=== PATIENT | female | born 1965 | race Caucasian/White ===

== ENCOUNTER → 2019-10-20 10:45 | Outpatient (CLI) | payer BC, SELFPAY ==
--- NOTE | ~2019-10-20 | MM_ITS ---
EXAMINATION: MM screening [facility] BI w jesu HISTORY: Screening mammogram TECHNIQUE: Craniocaudal and mediolateral oblique 3-D tomosynthesis images were obtained and synthetic 2-D images were generated. CAD analysis was submitted and interpreted. COMPARISON: 09/18/2018, 09/16/2017, 07/24/2016 bilateral digital screening mammogram of April BREAST PARENCHYMAL COMPOSITION: There are scattered areas of fibroglandular density. FINDINGS: There is no evidence of suspicious mass, calcification, or architectural distortion to sugg est malignancy in either breast. There has been no suspicious interval change. IMPRESSION: 1. No mammographic evidence of malignancy. 2. Recommend routine screening mammography in one year. BI-RADS Category 1: Negative Reviewed, dictated and finalized at location A.
== END ==
PROVIDERS: PCP Family Medicine; Visit Provider Family Medicine
DX: Z12.31 Encounter for screening mammogram for malignant neoplasm of breast (principal)
CPT/HCPCS: 77063; 77067

== ENCOUNTER → 2020-09-22 13:51 | Outpatient (CLI) | payer BC, SELFPAY ==
--- NOTE | ~2020-09-22 | MR_ITS ---
EXAMINATION: MR knee LT wo con DATE: 09/22/2020 14:47 INDICATION: Left knee pain and instability post injury 5 months prior. TECHNIQUE: Magnetic resonance imaging (MRI) of the left knee was performed without intravenous contra st. Sequences included coronal PD-weighted FSE, coronal PD-weighted FS FSE, sagittal T2-weighted FSE , sagittal PD-weighted FS FSE and axial PD weighted fat saturated FSE. COMPARISON: None. FINDINGS: Medial compartment: Medial meniscus is normal. Articular cartilage is normal. Lateral compartment: Lateral meniscus is normal. Articular cartilage is normal. Patellofemoral compartment: Partial-thickness chondral fissure which appears to involve less than 50% the cartilage thickness at the inferior aspect of the lateral patellar facet. Trochlear cartilage is normal. Ligaments and tendons: The anterior and posterior cruciate ligaments are normal. There is thickening of the proximal medial collateral ligament without surrounding edema to suggest acute injury consistent with scarring relate d to chronic sprain. The fibular collateral ligament complex is normal. The extensor mechanism is nor mal. The visualized medial and lateral hamstring tendons as well as the iliotibial band are normal. Fluid: Minimal joint effusion at the suprapatellar pouch. No loose osteochondral bodies identified. Small Ba ker's cyst. Osseous/other: Normal marrow signal. No fracture or abnormal marrow replacing process. IMPRESSION: 1. Mild scarring along the proximal medial collateral ligament consistent with sequela chronic sprain . 2. Partial-thickness chondral fissuring at the inferior aspect of the lateral patellar facet. Reviewed, dictated and finalized at location A. IMPRESSION: 1. Mild scarring along the proximal medial collateral ligament consistent with sequela chronic sprain. 2. Partial-thickness chondral fissuring at the inferior aspect of the lateral p atellar facet.
== END ==
PROVIDERS: PCP Family Medicine; Visit Provider Family Medicine
DX: M23.90 Unspecified internal derangement of unspecified knee (principal); R93.6 Abnormal findings on diagnostic imaging of limbs
CPT/HCPCS: 73721

== ENCOUNTER → 2020-11-17 16:50 | Outpatient (CLI) | payer BC, SELFPAY ==
--- NOTE | ~2020-11-17 | MM_ITS ---
EXAMINATION: MM screening [facility] [place] BI w jesu HISTORY: Screening mammogram TECHNIQUE: Craniocaudal and mediolateral oblique 3-D tomosynthesis images were obtained and synthetic 2-D images were generated. CAD analysis was submitted and interpreted. COMPARISON: 10/20/2019, 09/18/2018 BREAST PARENCHYMAL COMPOSITION: There are scattered areas of fibroglandular density. FINDINGS: There is no evidence of suspicious mass, calcification, or architectural distortion to sugg est malignancy in either breast. There has been no suspicious interval change. IMPRESSION: 1. No mammographic evidence of malignancy. 2. Recommend routine screening mammography in one year. BI-RADS Category 1: Negative Reviewed, dictated and finalized at location A.
== END ==
PROVIDERS: PCP Family Medicine; Visit Provider Family Medicine
DX: Z12.31 Encounter for screening mammogram for malignant neoplasm of breast (principal)
CPT/HCPCS: 77063; 77067

== ENCOUNTER 2021-05-17 01:01 | Day surgery (SDC) | payer BC, SELFPAY ==
[2021-04-24 09:08] VITALS: BMI 20.7
--- NOTE | 2021-05-16 17:39 | PM.HPGS ---
History of Present Illness History of Present Illness Consent: Risks, benefits, and alternatives have been discussed and questions answered. Patient agrees to proceed with procedure. Chief complaint: occult GI bleed Narrative: Emily Abarca is a 55 year old female Who was referred for colon cancer screening Because a stool Hemoccult was positive for blood. Review of Systems Review of Systems: All systems reviewed & are unremarkable except as noted in HPI and below PMFSH Past Medical History Medical History Hyperglycemia Family History Family History Grandparent Family history of coronary artery disease Other No family history of cardiovascular disease Social History Social History Smoking status: Never smoker Alcohol intake: current Alcohol use details: 2X monthly Substance use: never Living arrangements: alone Spiritual care concerns: No Meds Home Medications and Allergies Home Medications Medication Instructions Recorded Confirmed Type multivitamin 1 tablet PO DAILY 09/08/19 04/24/21 History antiarthritic combination no.2 900 5,800 mg PO DAILY 11/30/20 04/24/21 History mg tablet omega-3 fatty acids 500 mg capsule 500 mg PO BID 11/30/20 04/24/21 History metformin 500 mg tablet,extended 500 mg PO .COMPLEX #270 tablet 03/06/21 04/24/21 Rx release 24 hr ascorbic [id number] 1 ea PO DAILY PRN 04/24/21 04/24/21 History [Emergen-C] Allergies Allergy/AdvReac Type Severity Reaction Status Date / Time No Known Allergies Allergy Verified 05/17/21 06:54 Exam Const: General: alert Orientation/consciousness: patient oriented x3 Resp: Auscultation: clear to auscultation bilaterally Cardio: Rhythm: regular rhythm GI: GI Palp: Yes Soft to palpation and No Tenderness to palpation present (GI) Neuro: General: patient oriented x3 Assessment and Plan Assessment and plan (1) Hematest positive stools: Code(s): R19.5 - Other fecal abnormalities Status: Acute Assessment and Plan: Colonoscopy with possible biopsy or polypectomy or cautery or injection of substances.
[2021-05-17 06:56] VITALS: BP 111/62; PULSE 75; RESP 16; TEMP 36.6; O2SAT 100
[2021-05-17 07:05] LABS: Glucose Point of Care 91 mg/dl (65-105)
[2021-05-17] MEDS: LACTATED RINGERS 1,000 ML 150 ML IV CONT (07:13)
--- NOTE | 2021-05-17 07:50 | P.PNAN_ITS ---
Anes - Initial Pre Proc Eval Procedure: Operation Date: 05/17/21 08:00 Proposed Procedures p Colonoscopy - Arnulfo Khan MD Date/Time: 05/17/21 07:50 Surgeon: Arnulfo Khan MD Pre Op Diagnosis: occult GI bleed Patient Data Age: 55 Gender: F Height: 1.6 m Weight: 53.5 kg Last Vital Signs Temp 97.8 F 05/17/21 06:56 Pulse 75 05/17/21 06:56 Resp 16 05/17/21 06:56 BP 111/62 05/17/21 06:56 Pulse Ox 100 05/17/21 06:56 Allergies Allergy/AdvReac Type Severity Reaction Status Date / Time No Known Allergies Allergy Verified 05/17/21 06:54 Home Medications Medication Instructions Recorded Confirmed Type multivitamin 1 tablet PO DAILY 09/08/19 04/24/21 History antiarthritic combination no.2 900 5,800 mg PO DAILY 11/30/20 04/24/21 History mg tablet omega-3 fatty acids 500 mg capsule 500 mg PO BID 11/30/20 04/24/21 History metformin 500 mg tablet,extended 500 mg PO .COMPLEX #270 tablet 03/06/21 04/24/21 Rx release 24 hr ascorbic [id number] 1 ea PO DAILY PRN 04/24/21 04/24/21 History [Emergen-C] Laboratory Tests 05/17/21 07:01 POC Capillary Glucose 91 mg/dl mg/dl (65-105) Patient hx anesthesia problems: none Family hx anesthesia problems: none Results Review: All pre-operative results and documents have been reviewed as part of the pre-operative evaluation. COUNTS INCLUDE 234 BEDS AT THE [facility] Past Medical History Medical History Hyperglycemia Family History Family History Grandparent Family history of coronary artery disease Other No family history of cardiovascular disease Social History Social History Smoking status: Never smoker Alcohol intake: current Alcohol use details: 2X monthly Substance use: never Living arrangements: alone Spiritual care concerns: No Anes - Eval Final PreProcedure Day of Procedure 05/17/21 07:50 Patient weight: normal Heart: regular rate and rhythm Lungs: clear to auscultation Airway: Mallampati scale class II Neurological: alert and oriented Last oral intake: >/= 8 hours ASA classification: II Emergent: no Anesthetic plan: proceed Anesthesia type and monitoring: general GIVS and standard monitoring Results Review: All pre-operative results and documents have been reviewed as part of the pre-operative evaluation. Informed Consent: The patient's anesthetic plan and its attendant risks and benefits were discussed with the patient/family/POA. Questions were solicited and answers provided to the satisfaction of the patient/family/POA.
[2021-05-17 08:26] VITALS: BP 102/59; PULSE 73; RESP 17; O2SAT 97
[2021-05-17 08:36] VITALS: BP 97/61; PULSE 65; RESP 17; O2SAT 97
[2021-05-17 08:46] VITALS: BP 123/73; PULSE 67; RESP 17; O2SAT 100
== END 2021-05-17 09:05 | disposition home or self-care (01) ==
PROVIDERS: PCP Family Medicine; Visit Provider Internal Medicine Gastroenterology
PROC: 0DJD8ZZ Inspection of Lower Intestinal Tract, Via Natural or Artificial Opening Endoscopic (ICD-10-PCS; CPT 45378; principal; 2021-05-17 08:00)
DX: R19.5 Other fecal abnormalities (principal); R73.9 Hyperglycemia, unspecified
CPT/HCPCS: 45378; 82948; J2704; J7120

== ENCOUNTER 2021-06-08 02:59 | Day surgery (SDC) | payer BC, SELFPAY ==
[2021-05-26 15:06] VITALS: BMI 21.0
--- NOTE | 2021-06-07 13:42 | WPDGICN ---
Assessment and Plan Assessment and plan (1) Dysphagia: Code(s): R13.10 - Dysphagia, unspecified Status: Acute Assessment and Plan: EGD with possible biopsy or dilatation or cautery. (2) Gastroesophageal reflux: Code(s): K21.9 - Gastro-esophageal reflux disease without esophagitis Status: Acute Assessment and Plan: we need to consider acid reducing medications GI Consult Note Consult date/time: 06/07/21 13:42 HPI: Emily Abarca is a 55 year old female Referred for investigation of difficulty swallowing. For the past year so she periodically will feel food gets stuck. This happens with breads as well as meat and sometimes K[employer] fries. Eventually it will pass but she may need to take a drink of water to help it pass. Often it is painful when the food that is stuck finally moves. She does not have chronic heartburn does not take anything for reflux. She recalls having an EGD about 10 years ago in [facility] and she was told it was normal Review of Systems Review of Systems: All systems reviewed & are unremarkable except as noted in HPI and below PMFSH Past Medical History Medical History Hyperglycemia Family History Family History Grandparent Family history of coronary artery disease Other No family history of cardiovascular disease Social History Social History Smoking status: Never smoker Alcohol intake: current Drinks per week: 1 Alcohol use details: 2X monthly Substance use: never Substance use type: does not use Living arrangements: alone Spiritual care concerns: No Meds Home Medications and Allergies Home Medications Medication Instructions Recorded Confirmed Type multivitamin 1 tablet PO DAILY 09/08/19 05/26/21 History antiarthritic combination no.2 900 5,800 mg PO DAILY 11/30/20 05/26/21 History mg tablet omega-3 fatty acids 500 mg capsule 500 mg PO BID 11/30/20 05/26/21 History Emergen-C 1 ea PO DAILY PRN 04/24/21 05/26/21 History metformin 500 mg tablet,extended See Rx Instructions .ROUTE 05/29/21 Rx release 24 hr .COMPLEX #270 tablet Allergies Allergy/AdvReac Type Severity Reaction Status Date / Time No Known Allergies Allergy Verified 06/08/21 10:35 Exam Const: General: alert Orientation/consciousness: patient oriented x3 Resp: Auscultation: clear to auscultation bilaterally Cardio: Rhythm: regular rhythm GI: GI Palp: Yes Soft to palpation and No Tenderness to palpation present (GI) Neuro: General: patient oriented x3
[2021-06-08 10:37] VITALS: BP 132/82; PULSE 64; RESP 20; TEMP 36.6; O2SAT 99; BMI 20.8
[2021-06-08 10:56] LABS: Glucose Point of Care 82 mg/dl (65-105)
[2021-06-08] MEDS: LACTATED RINGERS 1,000 ML 150 ML IV CONT (11:02)
--- NOTE | 2021-06-08 11:24 | P.PNAN_ITS ---
Anes - Initial Pre Proc Eval Procedure: Operation Date: 06/08/21 11:30 Proposed Procedures p Esophagogastroduodenoscopy - Arnulfo Khan MD Date/Time: 06/08/21 11:24 Surgeon: Arnulfo Khan MD Pre Op Diagnosis: dysphagia Patient Data Age: 55 Gender: F Height: 1.6 m Weight: 53.4 kg Last Vital Signs Temp 36.6 C 06/08/21 10:37 Pulse 64 06/08/21 10:37 Resp 20 06/08/21 10:37 BP 132/82 06/08/21 10:37 Pulse Ox 99 06/08/21 10:37 Allergies Allergy/AdvReac Type Severity Reaction Status Date / Time No Known Allergies Allergy Verified 06/08/21 10:35 Home Medications Medication Instructions Recorded Confirmed Type multivitamin 1 tablet PO DAILY 09/08/19 05/26/21 History antiarthritic combination no.2 900 5,800 mg PO DAILY 11/30/20 05/26/21 History mg tablet omega-3 fatty acids 500 mg capsule 500 mg PO BID 11/30/20 05/26/21 History Emergen-C 1 ea PO DAILY PRN 04/24/21 05/26/21 History metformin 500 mg tablet,extended See Rx Instructions .ROUTE 05/29/21 Rx release 24 hr .COMPLEX #270 tablet Laboratory Tests 06/08/21 10:52 POC Capillary Glucose 82 mg/dl mg/dl (65-105) Patient hx anesthesia problems: none Family hx anesthesia problems: none Results Review: All pre-operative results and documents have been reviewed as part of the pre-operative evaluation. [facility] Past Medical History Medical History Hyperglycemia Family History Family History Grandparent Family history of coronary artery disease Other No family history of cardiovascular disease Social History Social History Smoking status: Never smoker Alcohol intake: current Drinks per week: 1 Alcohol use details: 2X monthly Substance use: never Substance use type: does not use Living arrangements: alone Spiritual care concerns: No Anes - Eval Final PreProcedure Day of Procedure 06/08/21 11:24 Patient weight: normal Heart: regular rate and rhythm Lungs: clear to auscultation Airway: Mallampati scale class II Neurological: alert and oriented Last oral intake: >/= 8 hours ASA classification: II Emergent: no Anesthetic plan: proceed Anesthesia type and monitoring: general GIVS and standard monitoring Results Review: All pre-operative results and documents have been reviewed as part of the pre-operative evaluation. Informed Consent: The patient's anesthetic plan and its attendant risks and benefits were discussed with the patient/family/POA. Questions were solicited and answers provided to the satisfaction of the patient/family/POA.
[2021-06-08 11:51] VITALS: BP 121/72; PULSE 69; RESP 30; O2SAT 100
[2021-06-08 12:01] VITALS: BP 141/79; PULSE 66; RESP 18; O2SAT 100
[2021-06-08 12:11] VITALS: BP 122/75; PULSE 62; RESP 20; O2SAT 100
== END 2021-06-08 12:25 | disposition home or self-care (01) ==
PROVIDERS: PCP Family Medicine; Visit Provider Internal Medicine Gastroenterology
PROC: 0DJ08ZZ Inspection of Upper Intestinal Tract, Via Natural or Artificial Opening Endoscopic (ICD-10-PCS; CPT 43235; principal; 2021-06-08 11:30)
DX: K22.2 Esophageal obstruction (principal); K21.9 Gastro-esophageal reflux disease without esophagitis; Z79.84 Long term (current) use of oral hypoglycemic drugs
CPT/HCPCS: 43249; 82948; 88305; C1726; J2704; J7120

== ENCOUNTER → 2022-03-02 10:46 | Outpatient (CLI) | payer BC, SELFPAY ==
--- NOTE | ~2022-03-02 | US_ITS ---
EXAMINATION: US thyroid DATE: 03/02/2022 11:06 INDICATION: Abnormal findings on diagnostic imaging of thyroid. TECHNIQUE: Multiple ultrasound images of the thyroid were obtained. COMPARISON: None. FINDINGS: The right thyroid lobe measures 4.7 x 1.9 x 2.0 cm. The left thyroid lobe measures 4.8 x 1.6 x 1.6 c m. There are multiple nodules in the thyroid. In the right thyroid lobe, there is a 10 mm solid, hyp oechoic, wider than tall nodule with smooth margin and punctate echogenic foci (TI-RADS TR5). In the right thyroid lobe, there is a 2.3 cm mixed cystic and solid, isoechoic, wider than tall nodule with lobulated margin without echogenic foci (TR4). In the right thyroid lobe, there is a 1.2 cm mixed cys tic and solid, hypoechoic, wider than tall nodule with smooth margin without echogenic foci (TR3). IMPRESSION: 1. Multinodular goiter. Ultrasound-guided fine-needle aspiration of 2 nodules is recommended. Reviewed, dictated and finalized at location A. RMATION TECHNOLOGY ADMINISTRATOR IMPRESSION: 1. Multinodular goiter. Ultrasound-guided fine-needle aspiration of 2 nodules i s recommended.
== END ==
PROVIDERS: PCP Family Medicine; Visit Provider Family Medicine
DX: R93.89 Abnormal findings on diagnostic imaging of other specified body structures (principal); E04.2 Nontoxic multinodular goiter
CPT/HCPCS: 76536

== ENCOUNTER 2022-03-13 11:02 | Outpatient (CLI) | payer BC, SELFPAY ==
--- NOTE | ~2022-03-13 | US_ITS ---
EXAMINATION: 1. US FNA w image guidance 2. US FNA additional DATE: 03/13/2022 12:41 INDICATION: Nontoxic single thyroid nodule. TECHNIQUE: The procedure and its benefits and risks were discussed with the patient. Risks specifically discusse d included bleeding. The patient verbalized understanding of the risks and agreed to proceed. The nec k was prepped and draped in the usual sterile manner. 1% lidocaine was used for local anesthesia. F brian passes were made with a 25G needle into the lesion in right thyroid lobe under ultrasound guidanc e. Five passes were made with a 25G needle into the lesion in left thyroid lobe under ultrasound guidanc e. There were no immediate complications. FINDINGS: Grayscale ultrasound images demonstrate needles advanced into a 2.3 cm nodule in right lower lobe for biopsy. Grayscale ultrasound images demonstrate needles advanced into a 10 mm nodule in left thyroid lobe. IMPRESSION: 1. Ultrasound-guided fine needle aspiration of a right thyroid nodule. 2. Ultrasound-guided fine-needle aspiration of a left thyroid nodule. Reviewed, dictated and finalized at location A. CUTTER IMPRESSION: 1. Ultrasound-guided fine needle aspiration of a right thyroid nodule. 2. Ultrasound-guided fine-needle aspiration of a left thyroid nodule.
== END 2022-03-13 11:03 | disposition home or self-care (01) ==
PROVIDERS: PCP Family Medicine; Visit Provider Family Medicine
DX: E04.1 Nontoxic single thyroid nodule (principal)
CPT/HCPCS: 10005; 10006; 88173; 88305

== ENCOUNTER → 2023-01-24 13:38 | Outpatient (CLI) | payer BC, SELFPAY ==
--- NOTE | ~2023-01-24 | MM_ITS ---
EXAMINATION: MM screening [facility] BI w jesu HISTORY: Screening mammogram TECHNIQUE: Craniocaudal and mediolateral oblique 3-D tomosynthesis images were obtained and synthetic 2-D images were generated. CAD analysis was submitted and interpreted. COMPARISON: 11/17/2020, 10/20/2019, 09/18/2018 BREAST PARENCHYMAL COMPOSITION: There are scattered areas of fibroglandular density. FINDINGS: No suspicious mass, calcification, or architectural distortion are identified in either jonnie ast to suggest malignancy. There has been no suspicious interval change. IMPRESSION: 1. No mammographic evidence of malignancy. 2. Recommend routine screening mammography in one year. BI-RADS Category 1: Negative Reviewed, dictated and finalized at location A.
== END ==
PROVIDERS: PCP Family Medicine; Visit Provider Family Medicine
DX: Z12.31 Encounter for screening mammogram for malignant neoplasm of breast (principal)
CPT/HCPCS: 77063; 77067

== ENCOUNTER 2023-11-01 08:36 | Outpatient (CLI) | payer BC, SELFPAY ==
[2023-11-01 13:55] LABS: Kit Draw Collected
== END 2023-11-01 08:37 | disposition home or self-care (01) ==
LOC: ANHGOSHLAB 08:39
PROVIDERS: PCP Family Medicine; Visit Provider Nurse Practitioner Family
DX: Z78.0 Asymptomatic menopausal state (principal); E78.2 Mixed hyperlipidemia; K21.9 Gastro-esophageal reflux disease without esophagitis; E04.2 Nontoxic multinodular goiter
CPT/HCPCS: 36415

== ENCOUNTER 2024-03-06 08:15 | Outpatient (CLI) | payer BC, SELFPAY ==
--- NOTE | ~2024-03-06 | MM_ITS ---
EXAMINATION: MM screening kai BI w jesu HISTORY: Screening TECHNIQUE: Craniocaudal and mediolateral oblique 3-D tomosynthesis images were obtained and synthetic 2-D images were generated. CAD analysis was submitted and interpreted. COMPARISON: Comparison to multiple prior studies sequentially, with oldest reviewed study dated 04/2016. BREAST PARENCHYMAL COMPOSITION: Not dense: There are scattered areas of fibroglandular density. FINDINGS: There is no evidence of suspicious mass, calcification, or architectural distortion to sugg est malignancy in either breast. There has been no suspicious interval change. IMPRESSION: 1. No mammographic evidence of malignancy. 2. Recommend routine screening mammography in one year. BI-RADS Category 1: Negative Reviewed, dictated and finalized at location B. PUNCHER STRAP
== END 2024-03-06 08:16 | disposition home or self-care (01) ==
LOC: ANHIMG 08:16
PROVIDERS: PCP Family Medicine; Visit Provider Family Medicine
DX: Z12.31 Encounter for screening mammogram for malignant neoplasm of breast (principal)
CPT/HCPCS: 77063; 77067

== ENCOUNTER 2025-03-10 07:53 | Outpatient (CLI) | payer BC, SELFPAY ==
--- NOTE | ~2025-03-10 | MM_ITS ---
EXAMINATION: MM screening kai BI w jesu HISTORY: Screening TECHNIQUE: Craniocaudal and mediolateral oblique 3-D tomosynthesis images were obtained and synthetic 2-D images were generated. CAD analysis was submitted and interpreted. COMPARISON: Comparison to multiple prior studies sequentially, with oldest reviewed study dated , 09/18/2018 BREAST PARENCHYMAL COMPOSITION: Not Dense: There are scattered areas of fibroglandular density. FINDINGS: There is no evidence of suspicious mass, calcification, or architectural distortion to suggest malignancy in either breast. IMPRESSION: 1. No mammographic evidence of malignancy. 2. Recommend routine screening mammography in one year. BI-RADS Category 1: Negative Reviewed, dictated and finalized at location A. [facility]
--- OUTSIDE RECORDS SUMMARY | 2025-03-10 08:05 | XMS_ITS | Clinical Summary ---
Author Organization [facility] lin Address [address] [facility] [place] [address] Care Team Providers Care Book Mender Name Role Phone Unavailable Primary Care Provider Unavailabl e Social History Tobacco Use Types Packs/Day Years Used Date Smoking Tobacco: Never Assessed Comments Unknown Sex and Gender Information Value Date Recorded Sex Assigned at Not on file Legal Sex Female 11:44 AM EDT Gender Identity Female 07/02/2020 10:48 AM EDT Sexual Orientation Not on file Plan of Treatment Not on file Medical Devices Not on file Insurance [facility]
--- OUTSIDE RECORDS SUMMARY | 2025-03-10 08:05 | XMS_ITS | Clinical Summary ---
Author Organization [facility] Address [address] [place] [id number] Care Team Providers Care Acquisition Lead Name Role Phone Unavailable Primary Care Provider Unavailabl e Social History Tobacco Use Types Packs/Day Years Used Date Smoking Tobacco: Never Assessed Comments Unknown Sex and Gender Information Value Date Recorded Sex Assigned at Not on file Legal Sex Female 7:16 PM CDT Gender Identity Not on file Sexual Orientation Not on file Plan of Treatment Health Maintenance Due Date Last Done Comments Cervical Cancer Screening Pa p Smear (Age 30 to 64) Every 3 Years 1963 Colorectal Cancer Screening Colonoscopy (10 Years) 1963 Annual Physical 08/03/1966 Hepatitis C 08/03/1981 DTaP, Tdap and Td Vaccines ( 1 - Tdap) 08/03/1982 Cervical Cancer Screening Pa p with HPV Testing (Age 30 to 64) Every 5 Years 08/03/1993 Cervical Cancer Screening with HPV 08/03/1993 Mammogram Screening 2003 Pneumococcal Vaccine: 50+ Ye ars (1 of 1 - PCV) 08/03/2013 Zoster Vaccines (1 of 2) 08/03/2013 COVID-19 Vaccine ( - 2024-2 6 season) 2024 Influenza Adult (#1) 2024 RSV Immunization or 60+ Years (1 - 1-dose 75+ series) 08/03/2038 Hepatitis A Vaccines Aged Out No long er eligible based on patient's age to complete this topic Meningococcal B Vaccine Aged Out No l onger eligible based on patient's age to complete this topic Meningococcal Vaccine Aged Out No ricci tien eligible based on patient's age to complete this topic RSV Immunizations Under 20 Months Aged Out No longer eligible based on patient's age to complete this topic
== END 2025-03-10 07:54 | disposition home or self-care (01) ==
PROVIDERS: PCP Family Medicine; Visit Provider Family Medicine
DX: Z12.31 Encounter for screening mammogram for malignant neoplasm of breast (principal)
CPT/HCPCS: 77063; 77067